=== PATIENT | female | born 1945 | race Caucasian/White ===

== ENCOUNTER → 2018-03-17 10:04 | Outpatient (CLI) | payer MEDICARE, SELFPAY ==
[2018-03-17 13:04] LABS: AST(SGOT) 18 U/L (15-37); Alanine Aminotransfer ALT/SGPT 20 U/L (13-56); Cholesterol 193 mg/dL (200); Ferritin 89 ng/mL (8-252); High Density Lipoprotein 65 mg/dL; Iron 70 ug/dL (50-170); Iron Binding Capacity,Total 297 ug/dL (250-450); PERCENT IRON SATURATION 23.6 % (15.0-55.0); Triglycerides 72 mg/dL; Very Low Density Lipoprotein 14 mg/dL (5-40)
[2018-03-19 14:51] LABS: Trileptal-Oxcarbazepine 15 ug/mL (10-35)
== END ==
PROVIDERS: Family Provider Family Medicine; PCP Family Medicine; Visit Provider Family Medicine
DX: E61.1 Iron deficiency (principal); G25.81 Restless legs syndrome; G40.909 Epilepsy, unspecified, not intractable, without status epilepticus; E78.5 Hyperlipidemia, unspecified
CPT/HCPCS: 36415; 80061; 82542; 82728; 83540; 83550; 84450; 84460

== ENCOUNTER → 2018-04-07 09:18 | Outpatient (CLI) | payer MEDICARE, SELFPAY ==
--- NOTE | 2018-04-07 09:21 | BI_ITS ---
MAMMOGRAPHY - BILATERAL SCREENING REASON FOR EXAM: Female, 72 years old. Routine annual screening examination. PERTINENT HISTORY: Non-contributory. TECHNIQUE: Digital bilateral breast thad (3D mammographic acquisition) in the CC and MLO projections. 2-D mediolateral oblique (MLO) and craniocaudad (CC) views of both breasts were obtained. CAD: Full Field Digital Mammography with Computer Added Detection was performed. COMPARISON: Comparison is made with prior study dated March 16, 2017 and February 27, 2016. FINDINGS: Breast Composition: There are scattered areas of fibroglandular density. There are no dominant masses or suspicious calcifications. No other significant abnormalities are identified. There has been no significant change since the prior study. BI/SCREENING MAMM (CAD), BILAT IMPRESSION: Stable bilateral screening mammogram. Yearly follow-up mammogram recommended. (A) ASSESSMENT CATEGORY: BIRADS Category 1: Negative. A letter regarding these results will be sent to the patient by the facility within 30 days. Approximately 10% of breast cancers are not detected by mammography. A normal mammogram should not delay biopsy of a clinically suspicious abnormality. [id number] Electronically Signed: Brett Quigley MD at 11:27 EDT Tel [phone], Service support ,
== END ==
PROVIDERS: Family Provider Family Medicine; PCP Family Medicine; Visit Provider Family Medicine
DX: Z12.31 Encounter for screening mammogram for malignant neoplasm of breast (principal)
CPT/HCPCS: 77063; 77067

== ENCOUNTER → 2018-06-08 09:49 | Outpatient (CLI) | payer MEDICARE, SELFPAY | PROVIDERS: Family Provider Family Medicine; PCP Family Medicine; Visit Provider Obstetrics & Gynecology Gynecology | DX: N30.01 Acute cystitis with hematuria (principal) | CPT/HCPCS: 87086; 87088 ==

== ENCOUNTER → 2018-07-21 13:45 | Outpatient (CLI) | payer MEDICARE, SELFPAY | PROVIDERS: Family Provider Family Medicine; PCP Family Medicine; Visit Provider Psychiatry & Neurology Neurology | DX: S85.2 Injury of peroneal artery (principal) | CPT/HCPCS: 93971 ==

== ENCOUNTER 2018-07-21 15:18 | Emergency (ER) | payer MEDICARE, SELFPAY ==
[2018-07-21 15:19] VITALS: BP 157/110; PULSE 65; RESP 18; TEMP 36.3; O2SAT 98; BMI 25.9
--- NOTE | 2018-07-21 15:36 | ED.VIS.GEN ---
History of Present Illness Chief Complaint: Lower Extremity Injury Informant: Patient Onset: Month(s) - 8 Context: Gradual Onset - after left knee replacement Timing: Intermittent Quality: pain/sore, swelling, numbness Location: left calf Current Severity: Mild Maximum Severity: Moderate Worsened by: nothing Relieved by: nothing Associated Symptoms: none. no cp, sob, palpitations, lightheadedness, near-syncopal episodes. Narrative: Patient was seen by her neurologist and sent for an outpatient duplex Doppler ultrasound of her left lower extremity because of these symptoms. The patient confirms that she has had no symptoms that are new in her legs in the past 8 months since all of this started. She said it waxes and wanes, intermittent. She denies being on any long trips lately, no hospitalizations since her knee replacement 8 months ago, and no recent surgeries otherwise. No history of DVT or PE. She takes no anticoagulants or antiplatelets. She was sent to the ER because of a positive ultrasound. - Past Medical History (1) Seizure disorder Status: Chronic (2) Hyperlipidemia Status: Chronic (3) Osteoarthritis Status: Chronic Past Medical History - Allergies and Home Meds Allergies/Adverse Reactions: Allergies atorvastatin [From Lipitor] Allergy (Verified 07/21/18 15:22) Angioedema Sulfa (Sulfonamide Antibiotics) Allergy (Verified 07/21/18 15:22) Hives acetaminophen [From Tylenol] Adverse Reaction (Verified 07/21/18 15:22) Nausea/Vom/Diarrhea pregabalin [From Lyrica] Adverse Reaction (Verified 07/21/18 15:22) Other FELT LIKE I WAS IN OUTER SPACE Primary Care Physician: Melissa Devlin MD [Primary Care Provider] - 2 Days Surgical History: total knee arthroplasty Smoking Status: Never smoker Review of Systems General: Denies: Chills, Fever Cardiovascular: Denies: Chest pain, Palpitations, Heart racing Respiratory: Denies: Dyspnea, Cough, Dyspnea on exertion Musculoskeletal: Reports: Swelling, Extremity Pain. Denies: Neck pain, Back pain Neurological: Reports: Numbness. Denies: Headache, Weakness Physical Exam Vital Signs/Narrative: Vital Signs Temp Pulse Resp BP Pulse Ox 07/21/18 15:19 97.3 F L 65 18 157/110 H 98 Inital Vital Signs reviewed: Yes General: Well nourished, Well developed Head: Normocephalic, Atraumatic Extremities: Nontender, No edema, - - Negative Homans bilaterally. Left TKA scar well-healed. Neurovascularly intact distally both lower extremities. No palpable cords throughout. Full range of motion all joints without any pain or difficulty. Skin: Normal color, No rash Neurological: Alert, Oriented x3, Cranial nerves II-XII grossly intact, Normal Strength, Normal Sensation, Normal Gait Psychological: Normal affect Diagnostic/Tx/Re-eval - Medical Decision Making The preliminary form that accompanied the patient to the ER shows that she has dilated and noncompressible left peroneal vein and left soleus vein, which are consistent with acute DVT. Everything else appears normal, that was studied. These clots are distal to the trifurcation, and therefore anticoagulation is not indicated, since she does not have active cancer or any other high risk risk factor. She probably got these clots postoperatively from her total knee replacement, however her symptoms been present for 8 [address] After discussing with Dr. Devlin, she agrees with holding off on anticoagulation, and recommends having the patient take a full aspirin once daily, in addition to having a repeat ultrasound in approximately 1 week and then following up in the office after then, returning to the ER or the office sooner if she is having any acute problems, which I think is very reasonable given this clinical scenario. I will set the patient up for that ultrasound. She is comfortable with this plan. ED Disposition - Plan for ED Patient: Disposition: Home or Assisted Living Chief Complaint: Lower Extremity Injury Diagnosis: Deep vein thrombosis (DVT) of left lower extremity Instructions: ED DVT Referrals: Melissa Devlin MD [Primary Care Provider] - 2 Days Additional Instructions: Take a full aspirin 325 mg once daily until told otherwise when you follow-up with your doctor. We are scheduling you for an ultrasound in approximately 1 week, if you do not receive a call within the next couple days she may need to call the [facility] radiology scheduling department to confirm the date and time of your ultrasound. Do not forget your prescription. Call your doctor and make an appointment for some day after you obtain the ultrasound. If pain and/or swelling progress beyond where it is now, going higher, before your appointment, or you have any chest discomfort or shortness of breath, return to the emergency department.
[2018-07-21 16:16] VITALS: BP 160/92; PULSE 63; RESP 16; O2SAT 97
== END 2018-07-21 16:17 | disposition home or self-care (01) ==
PROVIDERS: Emergency Provider Emergency Medicine; Family Provider Family Medicine; PCP Family Medicine
DX: I82.4Z2 Acute embolism and thrombosis of unspecified deep veins of left distal lower extremity (principal); G40.909 Epilepsy, unspecified, not intractable, without status epilepticus; E78.5 Hyperlipidemia, unspecified; M19.90 Unspecified osteoarthritis, unspecified site; Z79.899 Other long term (current) drug therapy; Z96.659 Presence of unspecified artificial knee joint; S85.2 Injury of peroneal artery
CPT/HCPCS: 93971; 99282

== ENCOUNTER → 2018-07-29 07:57 | Outpatient (CLI) | payer MEDICARE, SELFPAY | PROVIDERS: Family Provider Family Medicine; PCP Family Medicine; Visit Provider Emergency Medicine | DX: M79.605 Pain in left leg (principal) | CPT/HCPCS: 93971 ==

== ENCOUNTER → 2020-02-07 14:35 | Outpatient (CLI) | payer MEDICARE, SELFPAY ==
[2020-02-07 17:58] LABS: AST(SGOT) 22 U/L (15-37); Alanine Aminotransfer ALT/SGPT 24 U/L (13-56); Cholesterol 202 mg/dL (200); High Density Lipoprotein 68 mg/dL; Triglycerides 65 mg/dL; Very Low Density Lipoprotein 13 mg/dL (5-40)
== END ==
PROVIDERS: PCP Family Medicine; Referring Provider Family Medicine; Visit Provider Family Medicine
DX: E78.5 Hyperlipidemia, unspecified (principal)
CPT/HCPCS: 36415; 80061; 84450; 84460

== ENCOUNTER → 2021-01-04 10:42 | Outpatient (CLI) | payer MEDICARE, SELFPAY ==
[2021-01-04 12:13] LABS: Erythrocyte Sedimentation Rate 11 mm/hr (0-30)
[2021-01-04 12:19] LABS: Absolute Lymphocyte Count 1.42 X10^3/uL (0.83-4.51); Absolute Neutrophil Count 2.9 X10^3/uL (2.0-7.7); Basophil# 0.05 X10^3/uL; Eosinophil# 0.07 X10^3/uL; Eosinophils% 1.4 % (0-5); Hematocrit 41.4 % (37-47); Hemoglobin 13.3 g/dL (12.0-15.0); Lymphocyte # 1.42 X10^3/ul (4.0); Lymphocyte % 28.9 % (19-41); Mean Corp Hgb Conc 32.1 g/dL (32-36); Mean Corpuscular Hgb 30.2 pg (27.0-32.0); Mean Corpuscular Volume 93.9 fL (81-99); Mean Platelet Vol. 10.3 fl (6.2-12.0); Monocyte# 0.44 X10^3/uL; Monocyte% 8.9 % (0-10); NRBC Flagged by Analyzer 0 % (0-5); Neutrophil # 2.92 X10^3/uL (2.7-7.7); Neutrophil % 59.4 % (47-70); Platelet Count 210 K/mm3 (150-450); RBC Distribution Width SD 41.8 fl (35.1-43.9); Red Blood Count 4.41 M/mm3 (4.2-5.4); White Blood Count 4.9 K/mm3 (4.4-11.0)
[2021-01-04 12:36] LABS: CRP < 2.90 mg/L (0.0-3.0)
== END ==
PROVIDERS: PCP Family Medicine; Referring Provider Specialist; Visit Provider Specialist
DX: Z01.812 Encounter for preprocedural laboratory examination (principal); Z96.652 Presence of left artificial knee joint
CPT/HCPCS: 36415; 85025; 85652; 86140

== ENCOUNTER → 2021-04-08 10:18 | Outpatient (CLI) | payer MEDICARE, SELFPAY ==
[2021-04-08 12:38] LABS: AST(SGOT) 19 U/L (15-37); Alanine Aminotransfer ALT/SGPT 20 U/L (13-56); Cholesterol 197 mg/dL (200); High Density Lipoprotein 67 mg/dL; Triglycerides 89 mg/dL; Very Low Density Lipoprotein 18 mg/dL (5-40)
== END ==
PROVIDERS: PCP Family Medicine; Referring Provider Family Medicine; Visit Provider Family Medicine
DX: E78.00 Pure hypercholesterolemia, unspecified (principal)
CPT/HCPCS: 36415; 80061; 84450; 84460

== ENCOUNTER 2022-01-10 08:05 | Outpatient (CLI) | payer MEDICARE, SELFPAY ==
--- NOTE | 2022-01-10 08:13 | RAD_ITS ---
STUDY: X-RAY - ESOPHAGUS (BARIUM SWALLOW) WITH FLUOROSCOPY REASON FOR EXAM: Female, 76 years old. DYSPHAGIA TECHNIQUE: 14 view(s) of the esophagus were obtained following swallowing of barium. FLUOROSCOPY TIME (if supplied): (35 seconds) minutes/seconds COMPARISON: None. FINDINGS: There is no demonstrated esophageal foreign body. There is no demonstrated stricture or mucosal abnormality. Normal gastroesophageal junction, without a demonstrated hiatal hernia. The patient ingested a 12 mm tablet of barium without any difficulty. There is atherosclerotic tortuosity of the aortic arch and descending thoracic aorta. Normal visualized pulmonary parenchyma. Normal visualized osseous structures of the thorax. RAD/Esophagus Single Contrast IMPRESSION: Normal plain film x-ray examination (barium swallow) of the esophagus. Electronically Signed: Brett Quigley MD at 15:08 [facility] ,
== END 2022-01-10 23:59 | disposition home or self-care (01) ==
LOC: RAD 08:09
PROVIDERS: PCP Family Medicine; Referring Provider Otolaryngology; Visit Provider Otolaryngology
DX: R13.10 Dysphagia, unspecified (principal)
CPT/HCPCS: 74220

== ENCOUNTER → 2022-04-11 | Outpatient (CLI) | payer MEDICARE, SELFPAY ==
[2022-04-11 12:58] LABS: AST(SGOT) 23 U/L (15-37); Alanine Aminotransfer ALT/SGPT 22 U/L (13-56); Cholesterol 193 mg/dL (200); High Density Lipoprotein 63 mg/dL; Triglycerides 94 mg/dL; Very Low Density Lipoprotein 19 mg/dL (5-40)
== END | disposition home or self-care (01) ==
LOC: MFPLAB 10:41
PROVIDERS: PCP Family Medicine; Visit Provider Family Medicine
DX: E78.00 Pure hypercholesterolemia, unspecified (principal)
CPT/HCPCS: 36415; 80061; 84450; 84460

== ENCOUNTER 2022-11-22 11:41 | Inpatient (IN) | payer MEDICARE, SELFPAY ==
[2022-11-22] VITALS (11 sets, daily range): BP systolic 100–112; BP diastolic 50–61; PULSE 62–74; RESP 18; TEMP 36.6–37.3; O2SAT 82–95; BMI 26.4
--- NOTE | 2022-11-22 12:27 | RAD_ITS ---
STUDY: X-RAY CHEST REASON FOR EXAM: Female, 77 years old. Cough TECHNIQUE: Single AP portable view of the chest. COMPARISON: September 09, 2017 chest x-ray FINDINGS: Since prior study there is interval development of a right infrahilar opacity suspicious for right lower lobe infiltrate. There is increased density in the left lung base. There is no demonstrated pleural abnormality. There is mild cardiac enlargement. Normal mediastinum and rad. Normal visualized pulmonary arteries. There is atherosclerotic tortuosity of the aortic arch and descending thoracic aorta. There are diffuse degenerative changes of the visualized thoracic spine. Normal visualized ribs, clavicles, and shoulders. There is no demonstrated abnormality of the visualized soft tissue structures of the upper abdomen. RAD/Chest 1 View (Portable) IMPRESSION: Findings highly suspicious for right lower lobe/infrahilar pneumonia. Possible left lower lobe atelectasis and/or infiltrate. Electronically Signed: Danielle Moyer MD at 13:16 EST Reading Location ID and State: [facility] / [place] Tel , Service support ,
[2022-11-22 12:47] LABS: Mucous, Urine 0 SEEN /hpf (<or=2+)
[2022-11-22 12:48] LABS: Color, Urine Yellow (Yellow); Glucose, Dipstick Normal (Normal); Ketone-Dipstick Negative (Negative); Leukocyte Esterase-Dipstick 500 /ul (Negative); Nitrite-Dipstick Positive (Negative); Occult Blood-Urine 150 /ul (Negative); Protein-Dipstick 30 mg/dl (Negative); Specific Gravity, Urine 1.015 (1.002-1.030); Urine Bilirubin Dipstick Negative (Negative); Urine Clarity Sl. Cloudy (Clear); Urine Urobilinogen Normal (Normal)
[2022-11-22] MEDS: 0.9% Normal Saline 1,000 ML 1000 ML IV (12:51)
[2022-11-22] MEDS: Ondansetron 4 MG/2 ML Vial IV (12:51)
[2022-11-22 12:56] LABS: Absolute Lymphocyte Count 0.64 X10^3/uL (0.83-4.51); Absolute Neutrophil Count 8.5 X10^3/uL (2.0-7.7); Basophil# 0.01 X10^3/uL; Basophil% 0.1 % (0-1); Hematocrit 38.4 % (37-47); Hemoglobin 12.1 g/dL (12.0-15.0); Lymphocyte # 0.64 X10^3/ul (0.83-4.51); Lymphocyte % 6.5 % (19-41); Mean Corp Hgb Conc 31.5 g/dL (32-36); Mean Corpuscular Hgb 29.7 pg (27.0-32.0); Mean Corpuscular Volume 94.1 fL (81-99); Mean Platelet Vol. 10.1 fl (6.2-12.0); Monocyte# 0.63 X10^3/uL; Monocyte% 6.4 % (0-10); NRBC Flagged by Analyzer 0 % (0-5); Neutrophil # 8.54 X10^3/uL (2.7-7.7); Neutrophil % 86.6 % (47-70); Platelet Count 149 K/mm3 (150-450); RBC Distribution Width SD 44.9 fl (35.1-43.9); Red Blood Count 4.08 M/mm3 (4.2-5.4); White Blood Count 9.9 K/mm3 (4.4-11.0)
[2022-11-22 12:59] LABS: Bacteria 4+ /hpf (None Seen); Red Blood Cells-Urine 10-25 SEEN /hpf (0-5); Squamous Epithelial Cells - UA 0-5 SEEN /hpf (5-10); White Blood Cells 50-100 SEEN /hpf (0-5)
[2022-11-22 13:25] LABS: ALB/GLOB Ratio 0.9 RATIO (0.9-2.4); AST(SGOT) 44 U/L (15-37); Alanine Aminotransfer ALT/SGPT 40 U/L (13-56); Albumin, Serum 3.2 g/dL (3.2-5.0); Alkaline Phosphatase 58 U/L (45-117); Anion Gap 5 (5-15); BUN 24 mg/dL (7-18); Calcium,Total 8.6 mg/dL (8.5-10.1); Chloride 107 mmol/L (98-107); Creatinine, Serum 0.96 mg/dL (0.55-1.02); EST Glomerular Filtration Rate 60 mL/min (>60); Est Glom Filt Rate - Afr Amer 72 mL/min (>60); Estimated Creatinine Clearance 36.44 ml/min; Globulin 3.6 g/dL (2.2-4.2); Glucose 130 mg/dL (74-106); Potassium 3.9 mmol/L (3.5-5.1); Protein, Total 6.8 g/dL (6.4-8.2); Sodium Level 137 mmol/L (136-145); Troponin-I HS 17 pg/mL (3.0-54.0)
--- NOTE | 2022-11-22 13:38 | EX.ED.DYSGE1 ---
HPI History of Present Illness Chief Complaint: [facility] Home Medications oxcarbazepine 150 mg tablet,extended release 24 hr (Oxtellar XR) 150 mg PO DAILY 07/21/18 [History Last Taken Unknown] oxcarbazepine 300 mg tablet (Trileptal) 300 mg PO QHS 07/21/18 [History Last Taken Unknown] pramipexole 0.75 mg tablet 0.75 mg PO QHS 07/21/18 [History Last Taken Unknown] pravastatin 40 mg tablet 40 mg PO DAILY 07/21/18 [History Last Taken Unknown] pyridoxine (vitamin B6) 100 mg tablet 100 mg PO DAILY 07/21/18 [History Last Taken Unknown] Allergy/AdvReac Type Severity Reaction Status Date / Time atorvastatin [From Lipitor] Allergy Angioedema Verified 11/22/22 11:42 Sulfa (Sulfonamide Allergy Hives Verified 11/22/22 11:42 Antibiotics) acetaminophen [From Tylenol] AdvReac Nausea/Vom/ Verified 11/22/22 11:42 Diarrhea pregabalin [From Lyrica] AdvReac Other Verified 11/22/22 11:42 Social History Smoking Status: Never smoker EXAM Physical Exam Const Vital Signs: 11/22/22 11:43 11/22/22 12:54 11/22/22 12:57 Temperature 97.8 F Temperature Source Temporal Pulse Rate 68 Respiratory Rate 18 Blood Pressure 108/58 L Blood Pressure Mean 74 Pulse Ox 90 87 93 Oxygen Delivery Method Room Air Room Air Nasal Cannula Oxygen Flow Rate (L/min) 2 MDM MDM MDM Narrative Medical decision making narrative: Patient presenting with weakness, cough, lightheadedness. This has been worsening at home. She has an unsteady gait. It was noted in urgent care today that she was 88% on room air. She was ambulated here to the restroom and dropped and was around 82 to 83%. She was symptomatic of this. Patient put on 2 L nasal cannula and is satting 93%. CBC shows a normal white blood cell count of 9.9. Hemoglobin hematocrit are stable. Platelets slightly low at 149. Renal function and electrolytes are normal. BUN/creatinine ratio is elevated so the patient was given a liter of IV fluids. EKG was checked to rule out dysrhythmia and on my interpretation this is a normal sinus rhythm with a ventricular rate of 72 bpm with occasional PAC. No ST elevation or depression. Chest x-ray on my interval shows a right lower lobe pneumonia. She also has a urinary tract infection here today. Patient started on oral azithromycin with IV Rocephin. Given the hypoxic respiratory failure she will need to be admitted. Discussed with the hospitalist. Impression: 1. Hypoxic respiratory failure 2. Right lower lobe pneumonia 3. UTI 4. Dehydration Lab Data Attestation: I reviewed the patient's lab results. Labs: Laboratory Results - last 24 hr 11/22/22 11/22/22 11/22/22 12:40 12:50 12:50 WBC 9.9 RBC 4.08 L Hgb 12.1 Hct 38.4 MCV 94.1 MCH 29.7 MCHC 31.5 L RDW Std Deviation 44.9 H RDW Coeff of Giuliana 13.0 Plt Count 149 L MPV 10.1 Immature Gran % (Auto) 0.400 Neut % (Auto) 86.6 H Lymph % (Auto) 6.5 L [place] % (Auto) 6.4 Eos % (Auto) 0.0 Baso % (Auto) 0.1 Absolute Neuts (auto) 8.5 H Absolute Lymphs (auto) 0.64 L Nucleated RBC % 0 Sodium 137 Potassium 3.9 Chloride 107 Carbon Dioxide 25.0 Anion Gap 5 BUN 24 H Creatinine 0.96 Estim Creat Clear Calc 36.44 Est GFR (MDRD) Af Amer 72 Est GFR (MDRD) Non-Af 60 BUN/Creatinine Ratio 25.0 H Glucose 130 H Calcium 8.6 Total Bilirubin 0.60 AST 44 H ALT 40 Alkaline Phosphatase 58 Troponin I High Sens 17 Total Protein 6.8 Albumin 3.2 Globulin 3.6 Albumin/Globulin Ratio 0.9 Urine Color Yellow Urine Clarity Sl. Cloudy Urine pH 6.0 Ur Specific [place] 1.015 Urine Protein 30 H Urine Glucose (UA) Normal Urine Ketones Negative Urine Occult Blood 150 H Urine Nitrite Positive H Urine Bilirubin Negative Urine Urobilinogen Normal Ur Leukocyte Esterase 500 H Urine RBC 10-25 SEEN Urine WBC 50-100 SEEN Ur Squamous Epith Cells 0-5 SEEN Urine Bacteria 4+ Urine Mucus 0 SEEN Radiography Diagnostic Testing: Clinical Impression(s) from Imaging Studies Chest X-Ray 11/22/22 12:27 IMPRESSION: Findings highly suspicious for right lower lobe/infrahilar pneumonia. Possible left lower lobe atelectasis and/or infiltrate. Electronically Signed: Danielle Moyer MD at 13:16 EST , Discharge Plan Triage Chief Complaint: General Illness ED Provider: Gurdeep Qiu Dx/Rx/DC Orders Prescriptions: No Action pravastatin 40 MG tablet 40 mg PO DAILY Label Comments: TAKE ONE TABLET BY MOUTH ONCE DAILY oxcarbazepine [Trileptal] 300 MG tablet 300 mg PO QHS pyridoxine (vitamin B6) 100 MG tablet 100 mg PO DAILY pramipexole 0.75 MG tablet 0.75 mg PO QHS oxcarbazepine [Oxtellar XR] 150 MG Tab.Er.24h 150 mg PO DAILY Primary Care Provider: Melissa Devlin Referrals: Melissa Devlin MD [Primary Care Provider] -
[2022-11-22] MEDS: Azithromycin 250 MG Tablet 500 MG PO (13:48)
[2022-11-22] MEDS: Ceftriaxone 1 GM/50 ML BAG IV (14:18)
--- NOTE | 2022-11-22 14:22 | NURSING ---
MED SURG JANET HYPOXIC RESP FAILURE, RT LOWER LOBE PNEUMONIA, UTI
--- NOTE | 2022-11-22 15:06 | PCM.HP.STD ---
HPI - General General Date of Admission: 11/22/22 HPI Narrative TESHA CONTEH, is a 77 F who presents to the hospital with weakness cough and lightheadedness started on Thursday. This has been getting worse over the last several days and family was concerned because she was not eating or drinking very well and appeared to be getting weaker. In the ER she was found to be hypoxic to about 87% on room air at rest and then when she ambulated she had gone down to about 82 to 83% on room air. She was found to have a right lower lobe infiltrate and a possible left lower lobe infiltrate she was started on Rocephin and azithromycin in the ER. UA is also potentially consistent with a UTI. [facility] Medical History DVT (deep venous thrombosis) High cholesterol Injury of head and neck Restless legs Rheumatoid arthritis Seizures Home Medications pramipexole 0.75 mg tablet 1.5 mg PO QHS RESTLESS LEGS 07/21/18 [History Last Taken Unknown] pravastatin 40 mg tablet 40 mg PO DAILY LOWERS CHOLESTEROL 07/21/18 [History Last Taken Unknown] aspirin 81 mg tablet,delayed release (Adult Low Dose Aspirin) 81 mg PO BID BLOD THINNER 11/22/22 [History Last Taken Unknown] Allergy/AdvReac Type Severity Reaction Status Date / Time atorvastatin [From Lipitor] Allergy Angioedema Verified 11/22/22 11:42 Sulfa (Sulfonamide Allergy Hives Verified 11/22/22 11:42 Antibiotics) acetaminophen [From Tylenol] AdvReac Nausea/Vom/ Verified 11/22/22 11:42 Diarrhea pregabalin [From Lyrica] AdvReac Other Verified 11/22/22 11:42 Family History (Updated 11/22/22 @ 17:[address] Juan Carlos Fung MD) Other Diabetes Heart disease Surgical History (Updated 11/22/22 @ 17:[address] Juan Carlos Fung MD) Status post left knee replacement Social History Smoking Status: Never smoker ROS Constitutional Constitutional: Denies chills, fatigue, fever(s) or malaise Eyes Eyes: Denies blurry vision ENT HEENT: Denies headache(s) or nasal discharge Cardiovascular Cardiovascular: Denies chest pain, dyspnea on exertion or syncope Respiratory/Chest Respiratory/Chest: Reports cough and shortness of breath at rest; Denies shortness of breath with exertion Gastrointestinal Gastrointestinal: Denies constipation, diarrhea, nausea or vomiting Genitourinary Genitourinary: Denies dysuria Neurologic Neurologic: Denies focal weakness, numbness or tremor(s) Psychiatric Psychiatric: Denies anxiety or depression Vital Signs Vital Signs Vital Signs: 11/22/22 11:43 11/22/22 12:54 11/22/22 12:57 Temperature 97.8 F Temperature Source Temporal Pulse Rate 68 Respiratory Rate 18 Blood Pressure 108/58 L Blood Pressure Mean 74 Pulse Ox 90 87 93 Oxygen Delivery Method Room Air Room Air Nasal Cannula Oxygen Flow Rate (L/min) 2 11/22/22 14:26 Temperature 98.1 F Temperature Source Temporal Pulse Rate 72 Respiratory Rate 18 Blood Pressure 112/61 Blood Pressure Mean 78 Pulse Ox 93 Oxygen Delivery Method Nasal Cannula Oxygen Flow Rate (L/min) 3 Weight Weight: 140 lb Body Mass Index (BMI) 26.4 Physical Exam Narrative General: Alert, Oriented x3, Cooperative, No apparent distress HEENT: Atraumatic, PERRLA, EOMI, Normocephalic Oral: Moist Mucosa Neck: Supple, No JVD Lungs: Diminished, Normal air movement, rhonchi, No wheeze, No rales Cardiovascular: Regular rate, Regular Rhythm, Normal S1, Normal S2, No murmurs Abdomen: Soft, Non Tender, Non-Distended, No Hepato-splenomegaly Extremities: No edema, Capillary Refill Less than 3 Seconds Skin: No rashes, No breakdown Musculoskeletal: No Tenderness to Palpation of Joints or Extremities Neurological: Cranial nerves II-XII grossly intact, Motor Exam 5/5 strength throughout, Sensory exam intact to light touch and pain Psych/Mental Status: Normal Affect, Appropriate Results Lab / Micro Data Result Diagrams: 11/22/22 12:50 11/22/22 12:50 Labs: Laboratory Results - last 24 hr 11/22/22 12:40: Urine Color Yellow, Urine Clarity Sl. Cloudy, Urine pH 6.0, Ur Specific [place] 1.015, Urine Protein 30 H, Urine Glucose (UA) Normal, Urine Ketones Negative, Urine Occult Blood 150 H, Urine Nitrite Positive H, Urine Bilirubin Negative, Urine Urobilinogen Normal, Ur Leukocyte Esterase 500 H, Urine RBC 10-25 SEEN, Urine WBC 50-100 SEEN, Ur Squamous Epith Cells 0-5 SEEN, Urine Bacteria 4+, Urine Mucus 0 SEEN 11/22/22 12:50: WBC 9.9, RBC 4.08 L, Hgb 12.1, Hct 38.4, MCV 94.1, MCH 29.7, MCHC 31.5 L, RDW Std Deviation 44.9 H, RDW Coeff of Giuliana 13.0, Plt Count 149 L, MPV 10.1, Immature Gran % (Auto) 0.400, Neut % (Auto) 86.6 H, Lymph % (Auto) 6.5 L, [place] % (Auto) 6.4, Eos % (Auto) 0.0, Baso % (Auto) 0.1, Absolute Neuts (auto) 8.5 H, Absolute Lymphs (auto) 0.64 L, Nucleated RBC % 0 11/22/22 12:50: Sodium 137, Potassium 3.9, Chloride 107, Carbon Dioxide 25.0, Anion Gap 5, BUN 24 H, Creatinine 0.96, Estim Creat Clear Calc 36.44, Est GFR (MDRD) Af Amer 72, Est GFR (MDRD) Non-Af 60, BUN/Creatinine Ratio 25.0 H, Glucose 130 H, Calcium 8.6, Total Bilirubin 0.60, AST 44 H, ALT 40, Alkaline Phosphatase 58, Troponin I High Sens 17, Total Protein 6.8, Albumin 3.2, Globulin 3.6, Albumin/Globulin Ratio 0.9 Radiology Impression Chest X-Ray 11/22/22 12:27 IMPRESSION: Findings highly suspicious for right lower lobe/infrahilar pneumonia. Possible left lower lobe atelectasis and/or infiltrate. Electronically Signed: Danielle Moyer MD at 13:16 EST , Assessment & Plan Assessment/Plan (1) Acute respiratory failure with hypoxia: (2) Pneumonia: PLAN: Plan 1. Acute hypoxic respiratory failure secondary to pneumonia ? Continue with oxygen ? Continue with p.o. azithromycin for 3 total doses as well as Rocephin ? We will try to obtain a sputum culture to identify an organism ? She does not have any significant respiratory history so hopefully when she is ready for discharge she will not need oxygen to go home with ? UA is consistent with UTI however she is asymptomatic. Will obtain a urine culture. 2. Hyperlipidemia ? Stable ? Continue with pravastatin 3. History of seizures ? She just recently got taken off of her antiepileptics DVT: Lovenox Charges/Coding Visit Charges Inpatient E&M: 82745 Init Hosp L2
--- NOTE | 2022-11-22 15:25 | CASEMGMT ---
RN FRANCISCO Face to Face with patient for initial transition planning/care coordination assessment. RN CM introduced self and role at [facility]. Patient lying in bed, alert and oriented, family at bedside. Patient willing to participate in assessment and is able to answer all questions appropriately. Care providers, pharmacy, and demographics verified. Patient wishes to discharge home, denies need for home health at this time. Patient states she has no further needs or concerns at this time. CM to follow for discharge planning needs that may arise. PCP: [place] Specialists: [place] neurologist Preferred Pharmacy: [facility] Insurance: [facility] Prescription Benefit: yes Living Will/HPOA: yes, Prosper Garnica LNOK: , daughter, son Living Arrangements: Patient lives with in a single story home. Patient is independent and ambulates stairs. Transportation: self, DME/HHC: Patient has raised toilet, cane, and grab bars. No previous HHC or SNF. Patient currently on oxygen. [facility] preferred provider for patient's [facility], will monitor for home oxygen, green sheet placed on chart. Disposition Plan: Patient to discharge home with family support and follow-up plans in place. Kimberly LYNCH, RN, CM
[2022-11-22] MEDS: 0.9% Normal Saline 1,000 ML 100 ML IV (19:57)
[2022-11-22] MEDS: Pramipexole Di-HCl 0.5 MG Tablet 1.5 MG PO (22:07)
[2022-11-22] MEDS: Pravastatin 40 MG Tablet PO (22:08)
[2022-11-22] MEDS: Aspirin 81 MG TAB.CHEW PO (22:10)
[2022-11-23 02:30] VITALS: BP 120/57; PULSE 61; RESP 18; TEMP 36.6; O2SAT 96
[2022-11-23 06:10] LABS: Absolute Lymphocyte Count 1.24 X10^3/uL (0.83-4.51); Absolute Neutrophil Count 7.1 X10^3/uL (2.0-7.7); Basophil# 0.01 X10^3/uL; Basophil% 0.1 % (0-1); Hematocrit 34.7 % (37-47); Hemoglobin 10.7 g/dL (12.0-15.0); Lymphocyte # 1.24 X10^3/ul (0.83-4.51); Lymphocyte % 13.9 % (19-41); Mean Corp Hgb Conc 30.8 g/dL (32-36); Mean Corpuscular Hgb 29.2 pg (27.0-32.0); Mean Corpuscular Volume 94.8 fL (81-99); Mean Platelet Vol. 10.6 fl (6.2-12.0); Monocyte# 0.55 X10^3/uL; Monocyte% 6.2 % (0-10); NRBC Flagged by Analyzer 0 % (0-5); Neutrophil # 7.08 X10^3/uL (2.7-7.7); Neutrophil % 79.5 % (47-70); Platelet Count 145 K/mm3 (150-450); RBC Distribution Width CV 13.2 % (11.6-14.6); RBC Distribution Width SD 45.8 fl (35.1-43.9); Red Blood Count 3.66 M/mm3 (4.2-5.4); White Blood Count 8.9 K/mm3 (4.4-11.0)
[2022-11-23] MEDS: 0.9% Normal Saline 1,000 ML 100 ML IV ×2 (06:12→16:45)
[2022-11-23 06:35] LABS: Anion Gap 5 (5-15); BUN 18 mg/dL (7-18); BUN/Creat Ratio 26.9 RATIO (10-20); Calcium,Total 8.4 mg/dL (8.5-10.1); Chloride 110 mmol/L (98-107); Creatinine, Serum 0.67 mg/dL (0.55-1.02); EST Glomerular Filtration Rate 91 mL/min (>60); Est Glom Filt Rate - Afr Amer 110 mL/min (>60); Estimated Creatinine Clearance 34.99 ml/min; Glucose 94 mg/dL (74-106); Potassium 4.1 mmol/L (3.5-5.1); Sodium Level 139 mmol/L (136-145)
[2022-11-23 07:27] VITALS: BP 135/74; PULSE 59; RESP 18; TEMP 36.8; O2SAT 95
[2022-11-23 07:37] VITALS: O2SAT 94
[2022-11-23] MEDS: Aspirin 81 MG TAB.CHEW PO ×2 (07:41→16:41)
--- NOTE | 2022-11-23 09:55 | PCM.PN.HOSP ---
Subjective Subjective Feeling better, no issues overnight. She is still requiring 2 L of oxygen while at rest Objective Data Objective Data Vital Signs: Vital Signs Temp Pulse Resp BP Pulse Ox O2 Del Method O2 Flow Rate 98.3 F 59 L 18 135/74 H 95 Nasal Cannula 2.5 11/23/22 07:27 11/23/22 07:27 11/23/22 07:27 11/23/22 07:27 11/23/22 07:27 11/23/22 07:32 11/23/22 07:32 Oxygen Flow Rate (L/min) 2.5 Oxygen Delivery Method Nasal Cannula Weight: 140 lb Body Mass Index (BMI) 26.4 Intake & Output: Intake and Output for Last 24 Hours 11/22/22 11/23/22 11/24/22 03:59 03:59 03:59 Intake Total 1500 / 1500 1000 / 1000 Output Total 200 / 200 Balance 1300 / 1300 1000 / 1000 Lab / Micro Data Result Diagrams: 11/23/22 05:32 11/23/22 05:32 Labs: Laboratory Results - last 24 hr 11/22/22 12:40: Urine Color Yellow, Urine Clarity Sl. Cloudy, Urine pH 6.0, Ur Specific [place] 1.015, Urine Protein 30 H, Urine Glucose (UA) Normal, Urine Ketones Negative, Urine Occult Blood 150 H, Urine Nitrite Positive H, Urine Bilirubin Negative, Urine Urobilinogen Normal, Ur Leukocyte Esterase 500 H, Urine RBC 10-25 SEEN, Urine WBC 50-100 SEEN, Ur Squamous Epith Cells 0-5 SEEN, Urine Bacteria 4+, Urine Mucus 0 SEEN 11/22/22 12:50: WBC 9.9, RBC 4.08 L, Hgb 12.1, Hct 38.4, MCV 94.1, MCH 29.7, MCHC 31.5 L, RDW Std Deviation 44.9 H, RDW Coeff of Giuliana 13.0, Plt Count 149 L, MPV 10.1, Immature Gran % (Auto) 0.400, Neut % (Auto) 86.6 H, Lymph % (Auto) 6.5 L, [place] % (Auto) 6.4, Eos % (Auto) 0.0, Baso % (Auto) 0.1, Absolute Neuts (auto) 8.5 H, Absolute Lymphs (auto) 0.64 L, Nucleated RBC % 0 11/22/22 12:50: Sodium 137, Potassium 3.9, Chloride 107, Carbon Dioxide 25.0, Anion Gap 5, BUN 24 H, Creatinine 0.96, Estim Creat Clear Calc 36.44, Est GFR (MDRD) Af Amer 72, Est GFR (MDRD) Non-Af 60, BUN/Creatinine Ratio 25.0 H, Glucose 130 H, Calcium 8.6, Total Bilirubin 0.60, AST 44 H, ALT 40, Alkaline Phosphatase 58, Troponin I High Sens 17, Total Protein 6.8, Albumin 3.2, Globulin 3.6, Albumin/Globulin Ratio 0.9 11/23/22 05:32: WBC 8.9, RBC 3.66 L, Hgb 10.7 L, Hct 34.7 L, MCV 94.8, MCH 29.2, MCHC 30.8 L, RDW Std Deviation 45.8 H, RDW Coeff of Giuliana 13.2, Plt Count 145 L, MPV 10.6, Immature Gran % (Auto) 0.300, Neut % (Auto) 79.5 H, Lymph % (Auto) 13.9 L, [place] % (Auto) 6.2, Eos % (Auto) 0.0, Baso % (Auto) 0.1, Absolute Neuts (auto) 7.1, Absolute Lymphs (auto) 1.24, Nucleated RBC % 0 11/23/22 05:32: Sodium 139, Potassium 4.1, Chloride 110 H, Carbon Dioxide 24.0, Anion Gap 5, BUN 18, Creatinine 0.67, Estim Creat Clear Calc 34.99, Est GFR (MDRD) Af Amer 110, Est GFR (MDRD) Non-Af 91, BUN/Creatinine Ratio 26.9 H, Glucose 94, Calcium 8.4 L Micro: Microbiology 11/22/22 12:40 Urine, Clean Catch Urine Culture - Preliminary Gram negative sherlyn 11/22/22 16:00 Sputum, Expectorated/Coughed Respiratory Culture - Preliminary Alpha Hemolytic Streptococcus Radiography Diagnostic Testing: Radiology Impression Chest X-Ray 11/22/22 12:27 IMPRESSION: Findings highly suspicious for right lower lobe/infrahilar pneumonia. Possible left lower lobe atelectasis and/or infiltrate. Electronically Signed: Danielle Moyer MD at 13:16 EST , Physical Exam Narrative General: Alert, Oriented x3, Cooperative, No apparent distress HEENT: Atraumatic, PERRLA, EOMI, Normocephalic Oral: Moist Mucosa Neck: Supple, No JVD Lungs: Diminished, Normal air movement, scattered rhonchi, No wheeze, No rales Cardiovascular: Regular rate, Regular Rhythm, Normal S1, Normal S2, No murmurs Abdomen: Soft, Non Tender, Non-Distended, No Hepato-splenomegaly Extremities: No edema, Capillary Refill Less than 3 Seconds Skin: No rashes, No breakdown Musculoskeletal: No Tenderness to Palpation of Joints or Extremities Neurological: Cranial nerves II-XII grossly intact, Motor Exam 5/5 strength throughout, Sensory exam intact to light touch and pain Psych/Mental Status: Normal Affect, Appropriate Assessment & Plan Assessment/Plan (1) Acute respiratory failure with hypoxia: (2) Pneumonia: PLAN: Plan 1. Acute hypoxic respiratory failure secondary to pneumonia ? Continue with oxygen ? Continue with p.o. azithromycin for 3 total doses as well as Rocephin ? Sputum culture with alphahemolytic strep ? She does not have any significant respiratory history so hopefully when she is ready for discharge she will not need oxygen to go home with ? UA is consistent with UTI however she is asymptomatic. Urine culture with gram-negative sherlyn 2. Hyperlipidemia ? Stable ? Continue with pravastatin 3. History of seizures ? She just recently got taken off of her antiepileptics DVT: Lovenox Charges/Coding Visit Charges Inpatient E&M: 49042 Subs Hosp L2
[2022-11-23] MEDS: Ceftriaxone 1 GM/50 ML BAG IV (10:14)
[2022-11-23] MEDS: Enoxaparin 40 MG/0.4 ML Syringe SC (10:22)
[2022-11-23] MEDS: Azithromycin 250 MG Tablet 500 MG PO (10:22)
[2022-11-23 15:10] VITALS: BP 144/71; PULSE 63; RESP 16; TEMP 36.9; O2SAT 94
[2022-11-23] MEDS: Ensure Clear 120 ML Liquid PO (17:20)
[2022-11-23] MEDS: Pramipexole Di-HCl 0.5 MG Tablet 1.5 MG PO (22:06)
[2022-11-23] MEDS: Pravastatin 40 MG Tablet PO (22:06)
[2022-11-23 22:13] VITALS: BP 145/83; PULSE 65; RESP 18; TEMP 36.9; O2SAT 95
[2022-11-24] MEDS: 0.9% Normal Saline 1,000 ML 100 ML IV (02:23)
[2022-11-24 04:00] VITALS: BP 132/71; PULSE 62; RESP 18; TEMP 36.8; O2SAT 95
[2022-11-24 07:38] VITALS: O2SAT 86; O2SAT 94
[2022-11-24] MEDS: Aspirin 81 MG TAB.CHEW PO (07:57)
[2022-11-24 08:00] VITALS: BP 121/66; PULSE 65; RESP 17; TEMP 36.2; O2SAT 94
[2022-11-24 10:00] VITALS: BP 121/66; PULSE 65; RESP 17; TEMP 36.2; O2SAT 94
[2022-11-24] MEDS: Enoxaparin 40 MG/0.4 ML Syringe SC (10:35)
[2022-11-24] MEDS: Ceftriaxone 1 GM/50 ML BAG IV (10:35)
--- NOTE | 2022-11-24 13:03 | DS.PCM_ITS ---
Providers Date of Admission: 11/22/22 Date of Discharge: 11/24/22 Primary Care Physician: Dr. Melissa Devlin MD Reason For Visit: PNEUMONIA WITH HYPOXIA Diagnosis Discharge Diagnosis (1) Acute respiratory failure with hypoxia: Status: Acute Code(s): J96.01 - Acute respiratory failure with hypoxia (2) Pneumonia: Status: Acute Code(s): J18.9 - Pneumonia, unspecified organism Medications at Discharge Home Medications pramipexole 0.75 mg tablet 1.5 mg PO QHS RESTLESS LEGS 07/21/18 pravastatin 40 mg tablet 40 mg PO DAILY LOWERS CHOLESTEROL 07/21/18 aspirin 81 mg tablet,delayed release (Adult Low Dose Aspirin) 81 mg PO BID BLOD THINNER 11/22/22 amoxicillin 875 mg-potassium clavulanate 125 mg tablet 1 tab PO BID #12 tabs 11/24/22 benzonatate 200 mg capsule 200 mg PO TID PRN cough #21 caps 11/24/22 Hospital Course Operations None Procedures None Summary of Care Provided Minutes Spent on Discharge: 36 Hospital Course: Mrs. Garnica is a 77-year-old female who presents emergency department on 11/22/2022 with weakness, cough, and lightheadedness that started the previous Thursday. She had been getting worse over the last several days and family was concerned because she was not eating or drinking much and continued to get weak er. The emergency department she was found to be hypoxic at 87% on room air at rest and then with ambulation desatted to 82 to 83% on room air. She was found to have a right lower lobe infiltrate as well as a possible left lower lobe infiltrate and was started on Rocephin and azithromycin in the emergency department. Her UA also looked consistent with a urinary tract infection. She was maintained on IV antibiotics and admitted to the medical floor. Her urine culture resulted Klebsiella that was sensitive and her sputum culture yielded strep pneumo as well as group G strep. Sensitivities for her respiratory cultures were pending at the time of discharge however the patient clinically im proved on ceftriaxone and was maintained on this. I will follow her cultures after discharge and make any addendum's based on sensitivity that need be. On the a.m. of 11/24/2022 she was reevaluated indicated she was feeling much better overall. She was ambulating independently around the room going to the bathroom at the time of my examination. We did obtain a an ambulatory pulse ox prior to discharge and we did find that she desatted with exertion to 87% and therefore was sent home with 2 L of oxygen with exertion. I do anticipate this to resolve fairly quickly. She did not require any oxygen at rest as her sats stayed greater than 88%. We did arrange for outpatient oxygen to be delivered on the day of discharge and she was able to be discharged home on 11/24/2022 in stable condition. Prescription for antibiotics to complete a total of a 7-day course were sent to her pharmacy for another 6 days on 11/24/2022, we also sent a prescription for Tessalon Perles. I have instructed for her to follow-up with her primary care physician within the next week for reevaluation of pneumonia and ongoing oxygen needs. Discharge diagnoses: Acute hypoxia secondary to pneumonia Strep pneumo/group G strep pneumonia Klebsiella UTI Hyperlipidemia Restless leg syndrome Rheumatoid arthritis History of seizure disorder History of DVT Weight / BMI Weight Weight: 63.503 kg Body Mass Index (BMI) 26.4 ABG / Lab / Microbiology Data Result Diagrams: 11/23/22 05:32 11/23/22 05:32 Microbiology: Microbiology 11/22/22 16:00 Sputum, Expectorated/Coughed Gram Stain - Final 11/22/22 16:00 Sputum, Expectorated/Coughed Respiratory Culture - Preliminary Streptococcus pneumoniae Streptococcus group G Presumptive C albicans 11/22/22 12:40 Urine, Clean Catch Urine Culture - Final Klebsiella pneumoniae sp pneum Meaningful Use Info Meaningful Use Diagnoses (Choose all that apply): None applicable Discharge Plan Admission Admit Date/Time: 11/22/22 13:39 Primary Reason for Your Visit: weakness and lightheadness Attending Provider: Sonya Stanton Primary Care Provider: Melissa Devlin Consulting Providers: Juan Carlos Fung Instructions Additional Instructions / Restrictions: 1. Please complete antibiotics as ordered below 2. Continue 2 L of oxygen with exertion until discontinued by a physician 3. Follow-up with primary care physician within the next week to be reevaluated for ongoing oxygen needs Discharge Orders/Prescriptions Prescriptions: New amoxicillin-pot clavulanate 875-125 mg tablet 1 tab PO BID Qty: 12 0RF benzonatate 200 mg capsule 200 mg PO TID PRN (Reason: cough) Qty: 21 0RF Continued pravastatin 40 MG tablet 40 mg PO DAILY Label Comments: TAKE ONE TABLET BY MOUTH ONCE DAILY Rx Instructions: PT TAKES AT 1200 AND WOULD LIKE A DOSE AT THIS TIME pramipexole 0.75 MG tablet 1.5 mg PO QHS aspirin [Adult Low Dose Aspirin] 81 mg tablet,delayed release (DR/EC) 81 mg PO BID Referrals / Follow Up: Melissa Devlin MD [Primary Care Provider] - In 1 Week (follow-up for PNA) Disposition Disposition (needs filled in before D/C Order can be placed): Home, Self Care Charges/Coding Visit Charges Inpatient E&M: 18922 Disch Hosp
[2022-11-24 13:08] VITALS: BP 144/68; PULSE 54; RESP 17; TEMP 37.5; O2SAT 94
[2022-11-24 14:00] VITALS: BP 144/68; PULSE 54; RESP 17; TEMP 37.5; O2SAT 94
== END 2022-11-24 15:01 | disposition home or self-care (01) | DRG 194 ==
LOC: ED 13:44 → MS3 14:06
PROVIDERS: Admitting Provider Family Medicine; Emergency Provider Student in an Organized Health Care Education/Training Program; PCP Family Medicine; Visit Provider Internal Medicine
DX: J15.4 Pneumonia due to other streptococci (principal); N39.0 Urinary tract infection, site not specified; B96.1 Klebsiella pneumoniae [K. pneumoniae] as the cause of diseases classified elsewhere; G40.909 Epilepsy, unspecified, not intractable, without status epilepticus; M06.9 Rheumatoid arthritis, unspecified; E78.00 Pure hypercholesterolemia, unspecified; G25.81 Restless legs syndrome; B95.4 Other streptococcus as the cause of diseases classified elsewhere; R09.02 Hypoxemia; Z79.82 Long term (current) use of aspirin; Z79.899 Other long term (current) drug therapy; Z86.718 Personal history of other venous thrombosis and embolism
CPT/HCPCS: 36415; 71045; 80048; 80053; 81001; 84484; 85025; 87070; 87077; 87086; 87088; 87186; 87205; 93005; 97802; 99284; J7030; J2405

== ENCOUNTER → 2024-02-22 | Outpatient (CLI) | payer MEDICARE, SELFPAY ==
[2024-02-22 18:11] LABS: AST(SGOT) 22 U/L (15-37); Alanine Aminotransfer ALT/SGPT 21 U/L (13-56); Cholesterol 180 mg/dL (200); High Density Lipoprotein 65 mg/dL; Triglycerides 110 mg/dL; Very Low Density Lipoprotein 22 mg/dL (5-40)
== END | disposition home or self-care (01) ==
LOC: MFPLAB 14:36
PROVIDERS: PCP Family Medicine; Visit Provider Family Medicine
DX: E78.00 Pure hypercholesterolemia, unspecified (principal)
CPT/HCPCS: 36415; 80061; 84450; 84460

== ENCOUNTER → 2024-03-10 | Outpatient (CLI) | payer MEDICARE, SELFPAY ==
--- NOTE | 2024-03-10 14:09 | BI_ITS ---
MAMMOGRAPHY - BILATERAL SCREENING REASON FOR EXAM: Female, 78 years old. Routine annual screening examination. PERTINENT HISTORY: Non-contributory. TECHNIQUE: Digital bilateral breast ilir (3D mammographic acquisition) in the CC and MLO projections. 2-D mediolateral oblique (MLO) and craniocaudad (CC) views of both breasts were obtained. CAD: Full Field Digital Mammography with Computer Added Detection was performed. COMPARISON: Comparison is made with prior study dated April 07, 2018 and March 16, 2017. FINDINGS: Breast Composition: There are scattered areas of fibroglandular density. There are no dominant masses or suspicious calcifications. No other significant abnormalities are identified. There has been no significant change since the prior study. BI/SCRN MAMM (CAD)W/ILIR BILAT IMPRESSION: Stable bilateral screening mammogram. Yearly follow-up mammogram recommended. (A) ASSESSMENT CATEGORY: BIRADS Category 1: Negative. A letter regarding these results will be sent to the patient by the facility within 30 days. Approximately 10% of breast cancers are not detected by mammography. A normal mammogram should not delay biopsy of a clinically suspicious abnormality. [id number] Electronically Signed: Brett Quigley MD at 14:59 EDT ,
--- NOTE | 2024-03-10 14:12 | BD_ITS ---
STUDY: DUAL ENERGY X-RAY ABSORPTIOMETRY / DXA REASON FOR EXAM: Female, 78 years old. n95.9 TECHNIQUE: Bone Mineral Density (BMD) measurements of lumbar spine and bilateral hips were obtained. COMPARISON: Comparison is made with prior study February 07, 2014. FINDINGS: Lumbar Spine (L1-L4): g/cm2 (0.879) / T-score (-0.9) / Z-score (1.6) Findings are suggestive of normal bone density with a low fracture risk. Left Femur Total: g/cm2 (0.646) / T-score (-2.4) / Z-score (-0.4) Left Femoral Neck: g/cm2 (0.551) / T-score (-2.7) / Z-score (-0.4) Right Femur Total: g/cm2 (0.660) / T-score (-2.3) / Z-score (-0.3) Right Femoral Neck: g/cm2 (0.541) / T-score (-2.8) / Z-score (-0.5) The T-Scores on the most recent prior examination were: Lumbar Spine (L1-L4): There has been improvement of bone density since the previous examination. Left Femur Total: which represents an improvement of 0.1%. Right Femur Total: which represents an improvement of 6.4%. BD/Dexa Bone Density Study IMPRESSION: The patient is considered osteoporotic as outlined below according to World [employer] Organization (WHO) criteria with a high fracture risk. There has been improvement of bone density since the previous examination. Reference Information: The T-score is the number of standard deviations above or below the standard which is normal for young adults at their peak bone mineral density. The World Health Organization (WHO) interprets the T-scores as follows: Above -1 Normal bone density Between -1 and -2.5 Osteopenia Equal to / or below -2.5 Osteoporosis As a practical clinical guideline, osteopenia may be graded as follows: Mild -1 through -1.5 Moderate -1.6 through -2.0 Severe -2.1 through -2.4 The Z-score is the number of standard deviations above or below age-matched controls. A Z-score of less than -1.5 would be considered abnormal. References: 1. NIH Osteoporosis and Related Bone Diseases www osteo.org 2. International Society for Clinical Densitometry www iscd.org 3. National Osteoporosis Foundation www nof.org Electronically Signed: Brett Quigley MD at 12:30 EDT ,
== END | disposition home or self-care (01) ==
PROVIDERS: PCP Family Medicine; Referring Provider Family Medicine; Visit Provider Family Medicine
DX: Z12.31 Encounter for screening mammogram for malignant neoplasm of breast (principal); N95.9 Unspecified menopausal and perimenopausal disorder
CPT/HCPCS: 77063; 77067; 77080

== ENCOUNTER → 2024-09-19 | Outpatient (CLI) | payer MEDICARE, SELFPAY | END | disposition home or self-care (01) | LOC: LABSPEC 10:33 | PROVIDERS: PCP Family Medicine; Visit Provider Family Medicine | DX: N39.0 Urinary tract infection, site not specified (principal) | CPT/HCPCS: 87086; 87088 ==

== ENCOUNTER → 2024-11-16 | Outpatient (CLI) | payer MEDICARE, SELFPAY ==
[2024-11-16 12:13] LABS: Absolute Lymphocyte Count 1.03 X10^3/uL (0.83-4.51); Absolute Neutrophil Count 3.6 X10^3/uL (2.0-7.7); Basophil# 0.04 X10^3/uL; Basophil% 0.8 % (0-1); Eosinophils% 1.9 % (0-5); Hematocrit 41.5 % (37-47); Hemoglobin 13.1 g/dL (12.0-15.0); Lymphocyte # 1.03 X10^3/ul (0.83-4.51); Lymphocyte % 19.7 % (19-41); Mean Corp Hgb Conc 31.6 g/dL (32-36); Mean Corpuscular Hgb 29.7 pg (27.0-32.0); Mean Corpuscular Volume 94.1 fL (81-99); Mean Platelet Vol. 10.5 fl (6.2-12.0); Monocyte% 9.5 % (0-10); NRBC Flagged by Analyzer 0 % (0-5); Neutrophil # 3.55 X10^3/uL (2.7-7.7); Neutrophil % 67.7 % (47-70); Platelet Count 204 K/mm3 (150-450); RBC Distribution Width CV 12.7 % (11.6-14.6); RBC Distribution Width SD 43.7 fl (35.1-43.9); Red Blood Count 4.41 M/mm3 (4.2-5.4); White Blood Count 5.2 K/mm3 (4.4-11.0)
[2024-11-16 12:32] LABS: ALB/GLOB Ratio 1.2 RATIO (0.9-2.4); AST(SGOT) 21 U/L (15-37); Alanine Aminotransfer ALT/SGPT 25 U/L (13-56); Albumin, Serum 3.6 g/dL (3.2-5.0); Alkaline Phosphatase 68 U/L (45-117); Anion Gap 3 (5-15); BUN 19 mg/dL (7-18); BUN/Creat Ratio 25.1 RATIO (10-20); Calcium,Total 8.9 mg/dL (8.5-10.1); Chloride 109 mmol/L (98-107); Cholesterol 194 mg/dL (200); Creatinine, Serum 0.76 mg/dL (0.55-1.02); EST Glomerular Filtration Rate 78 mL/min (>60); Est Glom Filt Rate - Afr Amer 95 mL/min (>60); Globulin 3.1 g/dL (2.2-4.2); Glucose 92 mg/dL (74-106); High Density Lipoprotein 64 mg/dL; Potassium 3.8 mmol/L (3.5-5.1); Protein, Total 6.7 g/dL (6.4-8.2); Sodium Level 139 mmol/L (136-145); Triglycerides 87 mg/dL; Very Low Density Lipoprotein 17 mg/dL (5-40)
[2024-11-17 00:35] LABS: Vitamin D,25 Hydroxy 13.6 ng/mL
== END | disposition home or self-care (01) ==
PROVIDERS: PCP Nurse Practitioner Family; Referring Provider Nurse Practitioner Family; Visit Provider Nurse Practitioner Family
DX: E55.9 Vitamin D deficiency, unspecified (principal); I10 Essential (primary) hypertension; E78.5 Hyperlipidemia, unspecified
CPT/HCPCS: 36415; 80053; 80061; 82306; 85025

== ENCOUNTER → 2024-12-09 | Outpatient (CLI) | payer MEDICARE, SELFPAY | END | disposition home or self-care (01) | LOC: LABSPEC 15:30 | PROVIDERS: PCP Nurse Practitioner Family; Referring Provider Nurse Practitioner Family; Visit Provider Nurse Practitioner Family | DX: N39.0 Urinary tract infection, site not specified (principal) | CPT/HCPCS: 87086 ==